=== PATIENT | female | born 1985 | race Caucasian/White ===

== ENCOUNTER 2021-03-03 15:37 | Emergency (ER) | payer MEDICAID, SELFPAY ==
[2021-03-03 16:07] VITALS: BP 113/72; PULSE 94; RESP 18; TEMP 36.9; O2SAT 98; BMI 22.4
[2021-03-03] MEDS: methylPREDNISolone (DEPO) 40 mg/mL INJ 1 mL IM (17:37)
--- NOTE | 2021-03-03 17:39 | W.ED.SKABFB ---
HPI - Skin/Abscess/Foreign Bdy General: Chief complaint: Skin/Abscess/Foreign Body Stated complaint: BLISTERS/POOR WOUND HEALING POST SURGERY Time Seen by Provider: 03/03/21 17:06 History of Present Illness: HPI narrative: Patient has reddened areas around where the gallbladder surgical sites are that was done a month ago. Patient been placing Neosporin and bacitracin on them daily. Patient took around the ciprofloxacin given to her by her primary care provider for possible site infection. Patient having abdominal discomfort she is having itching and redness only. MD complaint: rash Onset (ago): week(s) Tetanus up to date: unsure Severity: mild Severity scale (1-10): 1 Context: recent antibiotic Associated symptoms: Deny chills or fever(s) Review of Systems Const: Denies: fever(s) or chills GI: Denies: abdominal pain Skin/Breast: Reports: pruritus (About surgical sites), erythema and skin tenderness PFSH ED PFSH: Medical History Anxiety Surgical History History of partial hysterectomy Hx of knee surgery Family History Other Cancer Diabetes Thyroid disease Social History Smoking and tobacco status: current every day smoker cigarettes Packs smoked per day: 0.5 Second hand smoke exposure: Yes Alcohol intake: never Marital status: Single Number of children: 2 Current occupational status: unemployed Current occupation: stay at home mom Physical Exam Const: COMMON NORMALS: no acute distress GENERAL APPEARANCE: cooperative Psych: COMMON NORMALS: mental status grossly normal ATTITUDE: Yes calm Skin: OTHER: Patient has macular raised skin lesions about surgical sites consistent with adverse drug reaction. Wound sites are self show clear yellowish thick gel inside the wound site consistent with normal healing. Course Vital Signs: Vital signs: Vital Signs Temperature 98.4 F 03/03/21 16:07 Pulse Rate 94 03/03/21 16:07 Respiratory Rate 18 03/03/21 16:07 Blood Pressure 113/72 03/03/21 16:07 Pulse Oximetry 98 03/03/21 16:07 MDM - Skin/Abscess/Foreign Bdy MDM Narrative: Medical decision making narrative: Patient comes in with rash and itching around surgical sites. Patient's been using Neosporin and bacitracin on a regular basis. Patient appears to have an adverse drug reaction to that cream and was encouraged to use Vaseline or petroleum jelly only do not use skin adhesive and follow-up with primary care provider Discharge Plan Discharge Patient Disposition: Home Clinical Impression: Allergic reaction to drug Qualifiers: Encounter type: initial encounter Qualified Code(s): T78.40XA - Allergy, unspecified, initial encounter Condition: Stable Prescriptions: No Action rizatriptan [Maxalt] 10 mg tablet See Rx Instructions PO .COMPLEX Qty: 14 RF: 0 Discharge Orders: Discharge ED (Routine); Ordered 03/03/21 Ordered By: Rome Benson Referrals: Brigid Valdez APRN [Primary Care Provider] - Discharge Diet: Usual diet Discharge Activity: Resume usual activity Activity Restrictions/Additional Instructions: Quit using Neosporin or bacitracin on the wounds that you have. Can apply Vaseline or petroleum jelly. Do not use any skin adhesive such as Band-Aids are sticky type dressings. Follow-up your primary care provider as necessary. Coding Level of Care Code ED [employer] Equipment Operator for Ana Gomez
[2021-03-03 17:50] VITALS: BP 104/68; PULSE 87; RESP 16; O2SAT 97
== END 2021-03-03 17:57 | disposition home or self-care (01) ==
PROVIDERS: Emergency Provider Nurse Practitioner Family; PCP Nurse Practitioner Family
DX: T78.40XA Allergy, unspecified, initial encounter (principal); F17.210 Nicotine dependence, cigarettes, uncomplicated
CPT/HCPCS: 96372; 99283; J1030

== ENCOUNTER → 2022-04-19 10:54 | Outpatient (BNVA) | payer MEDICAID, SELFPAY | PROVIDERS: PCP Nurse Practitioner Family; Visit Provider Nurse Practitioner Family | DX: R50.9 Fever, unspecified (principal); J32.9 Chronic sinusitis, unspecified; H66.91 Otitis media, unspecified, right ear | CPT/HCPCS: 87400; 87426 ==

== ENCOUNTER → 2022-06-12 13:23 | Outpatient (BNVA) | payer MEDICAID, SELFPAY | PROVIDERS: PCP Family Medicine; Visit Provider Family Medicine | DX: Z20.822 Contact with and (suspected) exposure to COVID-19 (principal); R50.9 Fever, unspecified; J02.9 Acute pharyngitis, unspecified | CPT/HCPCS: 87400; 87426; 87880 ==